=== PATIENT | male | born 1950 | race Hispanic/Latino ===

== ENCOUNTER → 2021-09-27 | Outpatient (CLI) | payer OTHER ==
[~2021-09-27] VITALS: Ht 165.1 cm; Wt 99.8 kg
[~2021-09-27] MED LIST: REGADENOSON 0.4 MG/5 ML PF SYG IVP SCH
== END | disposition home or self-care (01) ==
LOC: SHCH 08:08
PROVIDERS: ATTEND Internal Medicine Cardiovascular Disease
DX: I25.9 Chronic ischemic heart disease, unspecified (principal); R94.31 Abnormal electrocardiogram [ECG] [EKG]
CPT/HCPCS: 78452; 93017; 96374; A9500 ×2; J2785

== ENCOUNTER 2021-11-19 07:29 | Observation (INO) | payer OTHER ==
[2021-11-15 12:29] LABS: BASOPHILS % (AUTO) 0.5 % (0.0-5.0); EOSINOPHILS % (AUTO) 6.1 % (0.0-8.0); HEMATOCRIT 42.7 % (42-54); LYMPHOCYTES % (AUTO) 20.7 % (21.0-51.0); MEAN CORPUSCULAR HEMOGLOBIN 30.4 pg (27.0-33.0); MEAN CORPUSCULAR HGB CONC 32.3 g/dL (32.0-36.0); MEAN CORPUSCULAR VOLUME 94.1 fL (79-99); MONOCYTES % (AUTO) 7.5 % (3.0-13.0); NEUTROPHILS % (AUTO) 64.6 % (40.0-77.0); PLATELET COUNT (AUTO) 283 K/uL (130-400); RED BLOOD CELL COUNT(AUTO) 4.54 MIL/uL (4.50-6.20); WHITE BLOOD COUNT (AUTO) 8.6 K/uL (4.8-10.8)
[2021-11-15 12:39] LABS: INR 1.01 (0.85-1.15)
[2021-11-15 12:40] LABS: CREATININE 1.4 mg/dL (0.5-1.5); PARTIAL THROMBOPLASTIN TIME 30.1 SEC (26.3-35.5); POTASSIUM 4.1 mmol/L (3.5-5.1)
[2021-11-15 12:42] LABS: APPEARANCE,URINE CLEAR (CLEAR); BILIRUBIN,URINE NEGATIVE (NEGATIVE); COLOR,URINE YELLOW (YELLOW); GLUCOSE, URINE (UA) NEGATIVE (NEGATIVE); KETONES,URINE NEGATIVE (NEGATIVE); LEUKOCYTE ESTERASE ,URINE NEGATIVE (NEGATIVE); NITRATE,URINE NEGATIVE (NEGATIVE); OCCULT BLOOD,URINE NEGATIVE (NEGATIVE); PROTEIN,URINE NEGATIVE (NEGATIVE); UROBILINOGEN,URINE 0.2 mg/dL (0.2-1.0)
[~2021-11-19] VITALS: Ht 165.1 cm; Wt 96.6 kg
[~2021-11-19 07:29] MED LIST changes: +0.9% NACL 500ML IV.SOLN 500 ML IV SCH; +0.9%NACL 1000ML 1,000 ML IV SCH; +AEC81 PO; +ALLO100T PO; +ATOR40TA71 PO; +CLOP75TA32 PO; +FURO20TA4 PO; +GLIP2.5T2 PO; +ISOS60TA77 PO; +METF-446 PO; +METO25TA6 PO; -REGADENOSON 0.4 MG/5 ML PF SYG IVP SCH
[2021-11-19 07:48] VITALS: BP 153/80
[2021-11-19] MEDS ORDERED: IOHEXOL 350 MG/ML 100ML INFUS..BTL IV ONE (08:18)
[2021-11-19] MEDS ORDERED: IOHEXOL-350 50ML VIAL IV ONE (08:18)
[2021-11-19] MEDS ORDERED: MIDAZOLAM HCL 1 MG/ML 2ML VIAL ONE (08:18)
[2021-11-19] MEDS ORDERED: LIDOCAINE HCL 1% 20 ML VIAL ONE (08:18)
[2021-11-19] MEDS ORDERED: HEPARIN 10,000 UNIT/10ML (1,000 UNIT/ML) VIAL ONE (08:18)
[2021-11-19] MEDS ORDERED: NITROGLYCERIN 50MG VIAL ONE (08:18)
[2021-11-19] MEDS ORDERED: FENTANYL CITRATE PF 50 MCG/1 ML 2ML VIAL ONE (08:19)
[2021-11-19] MEDS ORDERED: BIVALIRUDIN 250 MG/VIAL IV ONE (08:56)
[2021-11-19] MEDS ORDERED: ASPIRIN 81 MG EC TAB ONE (09:26)
[2021-11-19] MEDS ORDERED: CLOPIDOGREL 300MG TAB ONE (09:26)
[2021-11-19] MEDS ORDERED: EPTIFIBATIDE 2 MG/ML 10 ML VIAL IVP ONE ×2 (10:26→10:40)
[2021-11-19] MEDS ORDERED: EPTIFIBATIDE 75MG/100ML BOTTLE 100 ML IV ONE ×2 (10:26→11:28)
[2021-11-19] MEDS ORDERED: MORPHINE 4 MG SYG ONE (10:41)
[2021-11-19] MEDS ORDERED: 0.9%NACL 1000ML 1,000 ML IV SCH (12:00)
[2021-11-19] MEDS ORDERED: DEXTROSE 50%-WATER 50 ML DISP.SYRIN IV PRN (12:00)
[2021-11-19] MEDS ORDERED: EPTIFIBATIDE 75MG/100ML BOTTLE 100 ML IV SCH (12:00)
[2021-11-19] MEDS ORDERED: GLUCAGON 1MG KIT 1 MG ML IM PRN (12:00)
[2021-11-19] MEDS ORDERED: BIMA12.5OS OU (13:14)
[2021-11-19 15:00] VITALS: BP 127/68
[2021-11-19 16:00] VITALS: BP 130/67
[2021-11-19] MEDS: INSULIN HUMULIN R 100 UNIT/ML 3ML SQ SCH (19:37)
[2021-11-19 19:51] VITALS: BP 128/62
[2021-11-19] MEDS: METOPROLOL TARTRATE 25 MG TAB PO SCH (20:56)
[2021-11-19] MEDS ORDERED: ATORVASTATIN 40 MG TABLET PO SCH (21:00)
[2021-11-19] MEDS ORDERED: Bimatoprost (Lumigan 0.01% Ophth Soln) OU SCH (21:00)
[2021-11-19 23:51] VITALS: BP 120/64
[2021-11-20 04:02] VITALS: BP 122/62
[2021-11-20 04:07] LABS: HEMATOCRIT 39.3 % (42-54); MEAN CORPUSCULAR HEMOGLOBIN 31.1 pg (27.0-33.0); MEAN CORPUSCULAR HGB CONC 32.6 g/dL (32.0-36.0); MEAN CORPUSCULAR VOLUME 95.6 fL (79-99); RED BLOOD CELL COUNT(AUTO) 4.11 MIL/uL (4.50-6.20); RED CELL DISTRIBUTION WIDTH 14.1 % (11.0-15.5); WHITE BLOOD COUNT (AUTO) 9.3 K/uL (4.8-10.8)
[2021-11-20 04:12] LABS: HEMOGLOBIN A1C 7.2 % (4.0-6.0)
[2021-11-20 04:22] LABS: CREATININE 1.2 mg/dL (0.5-1.5); POTASSIUM 4.2 mmol/L (3.5-5.1)
[2021-11-20] MEDS: INSULIN HUMULIN R 100 UNIT/ML 3ML SQ SCH (05:59)
[2021-11-20 08:00] VITALS: BP 126/80
[2021-11-20] MEDS: METOPROLOL TARTRATE 25 MG TAB PO SCH (08:16)
[2021-11-20] MEDS ORDERED: FUROSEMIDE 20 MG TABLET PO SCH (09:00)
[2021-11-20] MEDS ORDERED: ALLOPURINOL 100 MG TABLET PO SCH (09:00)
[2021-11-20] MEDS ORDERED: CLOPIDOGREL 75MG TAB PO SCH (09:00)
[2021-11-20] MEDS ORDERED: ISOSORBIDE MONO 60MG SR TAB PO SCH (09:00)
[2021-11-20] MEDS ORDERED: ASPIRIN 81 MG EC TAB PO SCH (09:00)
== END 2021-11-20 10:15 | disposition home or self-care (01) ==
LOC: DAH 07:29 → 2AH 07:30
PROVIDERS: ADMIT Internal Medicine; ATTEND Internal Medicine
DX: I25.10 Atherosclerotic heart disease of native coronary artery without angina pectoris (principal); I10 Essential (primary) hypertension; I25.2 Old myocardial infarction; I25.810 Atherosclerosis of coronary artery bypass graft(s) without angina pectoris; I25.82 Chronic total occlusion of coronary artery; E11.9 Type 2 diabetes mellitus without complications; E78.5 Hyperlipidemia, unspecified; M10.9 Gout, unspecified; R07.89 Other chest pain; Z95.5 Presence of coronary angioplasty implant and graft; Z79.84 Long term (current) use of oral hypoglycemic drugs; Z79.82 Long term (current) use of aspirin
CPT/HCPCS: 36415 ×2; 71045; 80048 ×2; 81003; 82948 ×3; 83036; 85025; 85027; 85347 ×4; 85610; 85730; 92920 ×2; 93005; 93799; 96365; 96366; A4215; A4216; A4221; A4222; A4223 ×3; A4606; A4663; C1725 ×4; C1757; C1760; C1761 ×2; C1769 ×4; C1887; C1894 ×2; G0378 ×22; J1327 ×5; J1644 ×3; J2250; J2270; J3010; J3490; J7030 ×2; Q9965 ×2; Q9967; 99156; 99157; J0583

== ENCOUNTER 2022-02-15 06:21 | Observation (INO) | payer OTHER ==
[~2022-02-15] VITALS: Ht 165.1 cm; Wt 94.2 kg
[~2022-02-15 06:21] MED LIST changes: -0.9% NACL 500ML IV.SOLN 500 ML IV SCH; -0.9%NACL 1000ML 1,000 ML IV SCH; +BIMA12.5OS OU
[2022-02-15 06:30] LABS: BASOPHILS % (AUTO) 0.8 % (0.0-5.0); EOSINOPHILS % (AUTO) 10.2 % (0.0-8.0); HEMATOCRIT 42.4 % (42-54); LYMPHOCYTES % (AUTO) 21.1 % (21.0-51.0); MEAN CORPUSCULAR HEMOGLOBIN 30.6 pg (27.0-33.0); MEAN CORPUSCULAR HGB CONC 33.3 g/dL (32.0-36.0); MONOCYTES % (AUTO) 9.8 % (3.0-13.0); NEUTROPHILS % (AUTO) 57.6 % (40.0-77.0); PLATELET COUNT (AUTO) 214 K/uL (130-400); RED BLOOD CELL COUNT(AUTO) 4.61 MIL/uL (4.50-6.20); RED CELL DISTRIBUTION WIDTH 14.1 % (11.0-15.5); WHITE BLOOD COUNT (AUTO) 8.5 K/uL (4.8-10.8)
[2022-02-15] MEDS ORDERED: NITROGLYCERIN 1GM OINT 1 INCH/1GM TD ONE (07:00)
[2022-02-15 07:15] LABS: ALBUMIN 3.6 g/dL (3.5-5.0); CREATININE 1.3 mg/dL (0.5-1.5); TOTAL PROTEIN, SERUM 6.4 g/dL (6.0-8.3)
[2022-02-15] MEDS ORDERED: HYDROMORPHONE 1 MG INJ IVP PRN (08:30)
[2022-02-15] MEDS ORDERED: ALBUTEROL 0.083% 2.5 MG/3 ML INH IH PRN (08:30)
[2022-02-15] MEDS ORDERED: ACETAMINOPHEN 325 MG TAB PO PRN (08:30)
[2022-02-15] MEDS ORDERED: LABETALOL 20MG SYG IV PRN (08:30)
[2022-02-15] MEDS ORDERED: HYDRALAZINE 20MG/ML VIAL IV PRN (08:30)
[2022-02-15] MEDS ORDERED: LACTULOSE 20 GM/30 ML UDCUP PO PRN (08:30)
[2022-02-15] MEDS ORDERED: ONDANSETRON 4MG INJ IVP PRN (08:30)
[2022-02-15] MEDS: ASPIRIN 81MG CHEW TAB PO SCH (08:54)
[2022-02-15] MEDS: METOPROLOL TARTRATE 25 MG TAB PO SCH ×2 (08:54→21:05)
[2022-02-15] MEDS: PANTOPRAZOLE 40 MG/VIAL IVP SCH (08:54)
[2022-02-15] MEDS: ENOXAPARIN SODIUM 100 MG/1 ML SQ SCH ×2 (08:55→21:06)
[2022-02-15] MEDS: POLYETHYLENE GLYCOL 3350 17 GM POWD.PACK PO SCH (08:56)
[2022-02-15] MEDS ORDERED: ENOXAPARIN SODIUM 1 MG/KG SQ SCH (09:00)
[2022-02-15] MEDS ORDERED: ISOSORBIDE MONO 30MG SR TAB PO SCH (09:00)
[2022-02-15] MEDS ORDERED: CLOPIDOGREL 75MG TAB PO SCH (10:30)
[2022-02-15 10:45] VITALS: BP 132/78
[2022-02-15] MEDS: INSULIN HUMULIN R 100 UNIT/ML 3ML SQ SCH ×3 (11:30→21:44)
[2022-02-15 16:00] VITALS: BP 151/75
[2022-02-15 19:12] VITALS: BP 121/58
[2022-02-15] MEDS ORDERED: ATORVASTATIN 20 MG TABLET PO SCH (21:00)
[2022-02-15] MEDS: ATORVASTATIN 40 MG TABLET PO SCH (21:05)
[2022-02-15] MEDS: LATANOPROST 2.5 ML DROPS OU SCH (21:07)
[2022-02-16 00:12] VITALS: BP 138/75
[2022-02-16 02:07] LABS: BASOPHILS % (AUTO) 0.6 % (0.0-5.0); EOSINOPHILS % (AUTO) 10.3 % (0.0-8.0); HEMATOCRIT 41.4 % (42-54); LYMPHOCYTES % (AUTO) 16.8 % (21.0-51.0); MEAN CORPUSCULAR HEMOGLOBIN 30.3 pg (27.0-33.0); MEAN CORPUSCULAR HGB CONC 32.6 g/dL (32.0-36.0); MEAN CORPUSCULAR VOLUME 92.8 fL (79-99); MONOCYTES % (AUTO) 9.5 % (3.0-13.0); NEUTROPHILS % (AUTO) 62.4 % (40.0-77.0); PLATELET COUNT (AUTO) 215 K/uL (130-400); RED BLOOD CELL COUNT(AUTO) 4.46 MIL/uL (4.50-6.20); RED CELL DISTRIBUTION WIDTH 14.1 % (11.0-15.5); WHITE BLOOD COUNT (AUTO) 8.1 K/uL (4.8-10.8)
[2022-02-16 02:29] LABS: CREATININE 1.3 mg/dL (0.5-1.5); PHOSPHORUS 3.9 mg/dL (2.5-4.9); POTASSIUM 4.2 mmol/L (3.5-5.1); THYROID STIMULATING HORMONE 1.35 uIU/mL (0.36-3.74)
[2022-02-16 02:43] LABS: B-TYPE NATRIURETIC PEPTIDE 80 pg/mL (0-100)
[2022-02-16 04:00] VITALS: BP 132/69
[2022-02-16] MEDS: INSULIN HUMULIN R 100 UNIT/ML 3ML SQ SCH ×4 (06:31→20:19)
[2022-02-16] MEDS: PANTOPRAZOLE 40 MG/VIAL IVP SCH (08:05)
[2022-02-16] MEDS: POLYETHYLENE GLYCOL 3350 17 GM POWD.PACK PO SCH ×2 (08:06→08:15)
[2022-02-16] MEDS: FUROSEMIDE 20 MG TABLET PO SCH (08:06)
[2022-02-16] MEDS: ENOXAPARIN SODIUM 100 MG/1 ML SQ SCH (08:06)
[2022-02-16] MEDS: ASPIRIN 81MG CHEW TAB PO SCH (08:06)
[2022-02-16] MEDS: METOPROLOL TARTRATE 25 MG TAB PO SCH ×2 (08:07→20:29)
[2022-02-16] MEDS: CLOPIDOGREL 75MG TAB PO SCH (08:07)
[2022-02-16] MEDS: ALLOPURINOL 100 MG TABLET PO SCH (08:07)
[2022-02-16 08:14] VITALS: BP 137/74
[2022-02-16] MEDS ORDERED: ISOSORBIDE MONO 30MG SR TAB PO SCH ×2 (09:00→16:30)
[2022-02-16 11:44] VITALS: BP 119/70
[2022-02-16 16:06] VITALS: BP 119/71
[2022-02-16 19:12] VITALS: BP 122/60
[2022-02-16] MEDS: LATANOPROST 2.5 ML DROPS OU SCH (20:28)
[2022-02-16] MEDS: ATORVASTATIN 40 MG TABLET PO SCH (20:29)
[2022-02-17 00:12] VITALS: BP 125/63
[2022-02-17 03:12] VITALS: BP 129/66
[2022-02-17 04:31] LABS: BASOPHILS % (AUTO) 0.7 % (0.0-5.0); EOSINOPHILS % (AUTO) 8.9 % (0.0-8.0); HEMATOCRIT 41.9 % (42-54); LYMPHOCYTES % (AUTO) 17.2 % (21.0-51.0); MEAN CORPUSCULAR HEMOGLOBIN 30.1 pg (27.0-33.0); MEAN CORPUSCULAR HGB CONC 32.5 g/dL (32.0-36.0); MEAN CORPUSCULAR VOLUME 92.7 fL (79-99); MONOCYTES % (AUTO) 9.8 % (3.0-13.0); NEUTROPHILS % (AUTO) 62.8 % (40.0-77.0); PLATELET COUNT (AUTO) 208 K/uL (130-400); RED BLOOD CELL COUNT(AUTO) 4.52 MIL/uL (4.50-6.20); WHITE BLOOD COUNT (AUTO) 7.2 K/uL (4.8-10.8)
[2022-02-17 04:55] LABS: ALBUMIN 3.3 g/dL (3.5-5.0); CREATININE 1.4 mg/dL (0.5-1.5); POTASSIUM 4.5 mmol/L (3.5-5.1); TOTAL PROTEIN, SERUM 6.6 g/dL (6.0-8.3)
[2022-02-17] MEDS: INSULIN HUMULIN R 100 UNIT/ML 3ML SQ SCH (05:56)
[2022-02-17 07:32] VITALS: BP 140/68
[2022-02-17] MEDS: ASPIRIN 81MG CHEW TAB PO SCH (07:46)
[2022-02-17] MEDS: METOPROLOL TARTRATE 25 MG TAB PO SCH (07:49)
[2022-02-17] MEDS: ALLOPURINOL 100 MG TABLET PO SCH (07:49)
[2022-02-17] MEDS: FUROSEMIDE 20 MG TABLET PO SCH (07:50)
[2022-02-17] MEDS: CLOPIDOGREL 75MG TAB PO SCH (07:50)
[2022-02-17] MEDS: PANTOPRAZOLE 40 MG/VIAL IVP SCH (07:50)
[2022-02-17] MEDS: POLYETHYLENE GLYCOL 3350 17 GM POWD.PACK PO SCH (08:00)
[2022-02-17] MEDS ORDERED: ISOSORBIDE MONO 30MG SR TAB PO SCH (09:00)
[2022-02-17 10:50] VITALS: BP 120/65
[2022-02-17] MEDS ORDERED: NITR0.3T11 SL (11:53)
[2022-02-17] MEDS ORDERED: ISOS30TA92 PO (11:53)
== END 2022-02-17 13:20 | disposition home or self-care (01) ==
LOC: EDH 06:21 → EDHIP 08:23 → 2AH 10:50 → 2DH 17:02
PROVIDERS: ADMIT Internal Medicine; ATTEND Internal Medicine
DX: I21.4 Non-ST elevation (NSTEMI) myocardial infarction (principal); I24.9 Acute ischemic heart disease, unspecified; I25.10 Atherosclerotic heart disease of native coronary artery without angina pectoris; I10 Essential (primary) hypertension; E11.65 Type 2 diabetes mellitus with hyperglycemia; I25.810 Atherosclerosis of coronary artery bypass graft(s) without angina pectoris; I25.2 Old myocardial infarction; M10.9 Gout, unspecified; M47.815 Spondylosis without myelopathy or radiculopathy, thoracolumbar region; E78.00 Pure hypercholesterolemia, unspecified; Z79.899 Other long term (current) drug therapy; Z95.5 Presence of coronary angioplasty implant and graft; Z96.652 Presence of left artificial knee joint; Z79.4 Long term (current) use of insulin; Z79.84 Long term (current) use of oral hypoglycemic drugs; Z79.82 Long term (current) use of aspirin; Z95.1 Presence of aortocoronary bypass graft
CPT/HCPCS: 96374; 96372; 99285; 82550 ×3; 83874 ×3; 84484 ×4; 80053; 85025; 82948 ×2; 36415; 71045; 93306; 93356; 93005; J1815; G0378 ×16; J1650 ×2; C9113; 80048; 83735; 83880; 84100; 84443; 96376

== ENCOUNTER 2022-02-19 01:00 | Inpatient (IN) | payer OTHER ==
[~2022-02-19] VITALS: Ht 165.1 cm; Wt 104.7 kg
[2022-02-19] VITALS (48 sets, daily range): BP systolic 83–143; BP diastolic 49–86
[~2022-02-19 01:00] MED LIST changes: +ISOS30TA92 PO; -ISOS60TA77 PO; +NITR0.3T11 SL
[2022-02-19] MEDS ORDERED: ASPIRIN 81MG CHEW TAB ONE (01:07)
[2022-02-19] MEDS ORDERED: NITROGLYCERIN 1GM OINT 1 INCH/1GM TD ONE (01:07)
[2022-02-19 01:23] LABS: BASOPHILS % (AUTO) 0.6 % (0.0-5.0); EOSINOPHILS % (AUTO) 6.7 % (0.0-8.0); HEMATOCRIT 40.9 % (42-54); LYMPHOCYTES % (AUTO) 18.1 % (21.0-51.0); MEAN CORPUSCULAR HEMOGLOBIN 30.4 pg (27.0-33.0); MEAN CORPUSCULAR HGB CONC 33.3 g/dL (32.0-36.0); MEAN CORPUSCULAR VOLUME 91.5 fL (79-99); MONOCYTES % (AUTO) 10.5 % (3.0-13.0); NEUTROPHILS % (AUTO) 63.7 % (40.0-77.0); PLATELET COUNT (AUTO) 231 K/uL (130-400); RED BLOOD CELL COUNT(AUTO) 4.47 MIL/uL (4.50-6.20); RED CELL DISTRIBUTION WIDTH 14.1 % (11.0-15.5); WHITE BLOOD COUNT (AUTO) 10.3 K/uL (4.8-10.8)
[2022-02-19] MEDS ORDERED: NITROGLYCERIN 50MG/D5W 250ML 1 BOT ONE (01:24)
[2022-02-19] MEDS ORDERED: GLIP2.5T2 PO (01:27)
[2022-02-19] MEDS ORDERED: NITR0.3T11 SL (01:27)
[2022-02-19] MEDS ORDERED: FURO20TA4 PO (01:27)
[2022-02-19] MEDS ORDERED: CLOP75TA32 PO (01:27)
[2022-02-19] MEDS ORDERED: AEC81 PO (01:27)
[2022-02-19] MEDS ORDERED: ALLO100T PO (01:27)
[2022-02-19] MEDS ORDERED: METO25TA6 PO (01:27)
[2022-02-19] MEDS ORDERED: ATOR40TA69 PO (01:27)
[2022-02-19] MEDS ORDERED: METF-446 PO (01:27)
[2022-02-19] MEDS ORDERED: ISOS60TA77 PO (01:27)
[2022-02-19] MEDS ORDERED: ASPIRIN 81MG CHEW TAB PO ONE (01:30)
[2022-02-19 01:47] LABS: INR 1.02 (0.85-1.15); PROTHROMBIN TIME 11.1 SEC (9.6-11.6)
[2022-02-19 01:48] LABS: CREATININE 1.1 mg/dL (0.5-1.5); PARTIAL THROMBOPLASTIN TIME 32.7 SEC (26.3-35.5); POTASSIUM 4.8 mmol/L (3.5-5.1)
[2022-02-19 01:53] LABS: ALBUMIN 3.4 g/dL (3.5-5.0); MAGNESIUM 1.8 mg/dL (1.80-2.40); TOTAL PROTEIN, SERUM 6.5 g/dL (6.0-8.3)
[2022-02-19] MEDS ORDERED: HEPARIN 25,000 UNITS/250ML D5W 250 ML IV ONE (02:17)
[2022-02-19] MEDS ORDERED: HEPARIN 5,000 UNIT VIAL ONE (02:22)
[2022-02-19] MEDS ORDERED: CLOPIDOGREL 300MG TAB ONE ×2 (02:36→11:21)
[2022-02-19] MEDS ORDERED: MORPHINE 2 MG SYG ONE (03:15)
[2022-02-19] MEDS ORDERED: HYDRALAZINE 20MG/ML VIAL IV PRN (03:30)
[2022-02-19] MEDS ORDERED: DOCUSATE SODIUM 100 MG CAP PO PRN (03:30)
[2022-02-19] MEDS ORDERED: ALBUTEROL 0.083% 2.5 MG/3 ML INH IH PRN (03:30)
[2022-02-19] MEDS ORDERED: ONDANSETRON 4MG INJ IVP PRN (03:30)
[2022-02-19] MEDS ORDERED: LABETALOL 20MG SYG IV PRN (03:30)
[2022-02-19] MEDS ORDERED: 0.9%NACL 1000ML 1,000 ML IV SCH (03:30)
[2022-02-19] MEDS ORDERED: LACTULOSE 20 GM/30 ML UDCUP PO PRN (03:30)
[2022-02-19] MEDS: INSULIN HUMULIN R 100 UNIT/ML 3ML SQ SCH ×3 (06:00→18:14)
[2022-02-19] MEDS ORDERED: HEPARIN 25,000 UNITS/250ML D5W 250 ML IV SCH ×3 (06:30→15:00)
[2022-02-19 08:15] LABS: MAGNESIUM 1.9 mg/dL (1.80-2.40); PHOSPHORUS 3.7 mg/dL (2.5-4.9)
[2022-02-19] MEDS: 0.9%NACL 1000ML 1,000 ML IV SCH ×2 (08:51→16:10)
[2022-02-19] MEDS: PANTOPRAZOLE 40 MG/VIAL IVP SCH (08:59)
[2022-02-19] MEDS ORDERED: PANTOPRAZOLE 40 MG/VIAL IVP SCH ×2 (09:00)
[2022-02-19] MEDS ORDERED: IODIXANOL 320 MG/ML 100 ML VIAL ONE (10:42)
[2022-02-19] MEDS ORDERED: HEPARIN 10,000 UNIT/10ML (1,000 UNIT/ML) VIAL ONE (10:42)
[2022-02-19] MEDS ORDERED: NITROGLYCERIN 50MG VIAL ONE (10:42)
[2022-02-19] MEDS ORDERED: MIDAZOLAM HCL 1 MG/ML 2ML VIAL ONE ×3 (10:43→12:45)
[2022-02-19] MEDS ORDERED: LIDOCAINE HCL 400MG/20ML VIAL ONE (10:43)
[2022-02-19] MEDS ORDERED: FENTANYL CITRATE PF 50 MCG/1 ML 2ML VIAL ONE ×2 (10:43→12:23)
[2022-02-19] MEDS ORDERED: IOHEXOL 350 MG/ML 100ML INFUS..BTL IV ONE ×2 (10:50→12:00)
[2022-02-19] MEDS ORDERED: NOREPINEPHRINE BITARTRATE 1 MG/1 ML ML IV ONE (12:59)
[2022-02-19 13:37] LABS: HEMATOCRIT 45.1 % (42-54)
[2022-02-19] MEDS ORDERED: DEXTROSE 50%-WATER 50 ML DISP.SYRIN IV PRN (14:30)
[2022-02-19] MEDS ORDERED: 0.9% NACL 500ML IV.SOLN 500 ML IV SCH (14:30)
[2022-02-19] MEDS ORDERED: GLUCAGON 1MG KIT 1 MG ML IM PRN (14:30)
[2022-02-19 15:25] LABS: ABG BASE EXCESS -7.5 mmol/L (-2.0-3.0); ABG HCO3 17.9 mmol/L (21.0-28.0); ABG OXYGEN SATURATION 91.7 % (95.0-99.0); ABG PCO2 36 mmHg (35-48)
[2022-02-19 15:50] LABS: HEMATOCRIT 41.7 % (42-54); MEAN CORPUSCULAR HEMOGLOBIN 30.9 pg (27.0-33.0); MEAN CORPUSCULAR HGB CONC 33.1 g/dL (32.0-36.0); MEAN CORPUSCULAR VOLUME 93.5 fL (79-99); RED BLOOD CELL COUNT(AUTO) 4.46 MIL/uL (4.50-6.20); RED CELL DISTRIBUTION WIDTH 13.9 % (11.0-15.5); WHITE BLOOD COUNT (AUTO) 16.7 K/uL (4.8-10.8)
[2022-02-19 16:00] LABS: CREATININE 1.2 mg/dL (0.5-1.5); INR 1.02 (0.85-1.15); POTASSIUM 4.8 mmol/L (3.5-5.1); PROTHROMBIN TIME 11.1 SEC (9.6-11.6)
[2022-02-19] MEDS ORDERED: SODIUM BICARB 50MEQ 50ML VIAL IV SCH (16:00)
[2022-02-19 16:04] LABS: ALBUMIN 3.1 g/dL (3.5-5.0); HEMOGLOBIN A1C 7.1 % (4.0-6.0); TOTAL PROTEIN, SERUM 6.5 g/dL (6.0-8.3)
[2022-02-19 16:20] LABS: PARTIAL THROMBOPLASTIN TIME > 139.0 SEC (26.3-35.5)
[2022-02-19] MEDS: MORPHINE 4 MG SYG IVP PRN ×2 (16:53→20:20)
[2022-02-19] MEDS: NITROGLYCERIN 50MG/D5W 250ML 250 BOT IV SCH (16:57)
[2022-02-19] MEDS: ALLOPURINOL 100 MG TABLET PO SCH (17:15)
[2022-02-19] MEDS ORDERED: NITROGLYCERIN 0.4 MG SL TAB SL PRN (17:30)
[2022-02-19] MEDS ORDERED: NON-FORMULARY MEDICATION 1 EACH (Nitroglycerin 0.3 MG) SL PRN (17:30)
[2022-02-19] MEDS ORDERED: CALCIUM GLUC 1GM 1 GM in 0.9%NACL 100ML 100 ML IV SCH (17:30)
[2022-02-19] MEDS ORDERED: CALCIUM GLUC 1GM/10ML VIAL IV ONE (17:30)
[2022-02-19] MEDS ORDERED: POTASSIUM CHLORIDE 20MEQ/100ML 100 ML IV PRN (19:30)
[2022-02-19] MEDS ORDERED: POTASSIUM CHLORIDE 10% ELIXIR 20 MEQ/15 ML UDCUP PO PRN (19:30)
[2022-02-19] MEDS ORDERED: MAGNESIUM 2GM PREMIX 50ML 50 ML IV PRN (19:30)
[2022-02-19] MEDS ORDERED: LIDOCAINE HCL-MPF 1% 2ML VIAL IV PRN (19:30)
[2022-02-19 19:46] LABS: ABG BASE EXCESS -2.2 mmol/L (-2.0-3.0); ABG HCO3 22.4 mmol/L (21.0-28.0); ABG OXYGEN SATURATION 96.5 % (95.0-99.0); ABG PCO2 38 mmHg (35-48)
[2022-02-19] MEDS: ATORVASTATIN 40 MG TABLET PO SCH (19:51)
[2022-02-19] MEDS: METOPROLOL TARTRATE 25 MG TAB PO SCH (19:51)
[2022-02-19] MEDS: ***HM*** (Bimatoprost (Lumigan 0.01% Ophth Soln) 1 DROP) OU SCH (19:56)
[2022-02-19] MEDS ORDERED: BIMATOPROST OU SCH (21:00)
[2022-02-19] MEDS ORDERED: MIDAZOLAM HCL 1 MG/ML 2ML VIAL IVP ONE (22:00)
[2022-02-19 22:51] LABS: MYOGLOBIN 1996 ng/mL (10-92)
[2022-02-19 23:01] LABS: POTASSIUM 4.6 mmol/L (3.5-5.1)
[2022-02-19 23:02] LABS: CREATININE 1.3 mg/dL (0.5-1.5); MAGNESIUM 2.5 mg/dL (1.80-2.40)
[2022-02-19 23:06] LABS: CREATINE KINASE, TOTAL 2383 U/L (21-232)
[2022-02-20] VITALS (76 sets, daily range): BP systolic 81–113; BP diastolic 50–74
[2022-02-20] MEDS: INSULIN HUMULIN R 100 UNIT/ML 3ML SQ SCH ×4 (00:56→16:45)
[2022-02-20] MEDS: 0.9%NACL 1000ML 1,000 ML IV SCH ×3 (01:34→21:24)
[2022-02-20 03:47] LABS: BASOPHILS % (AUTO) 0.1 % (0.0-5.0); EOSINOPHILS % (AUTO) 0.1 % (0.0-8.0); HEMATOCRIT 35.2 % (42-54); LYMPHOCYTES % (AUTO) 4.8 % (21.0-51.0); MEAN CORPUSCULAR HEMOGLOBIN 30.5 pg (27.0-33.0); MEAN CORPUSCULAR HGB CONC 33.2 g/dL (32.0-36.0); MEAN CORPUSCULAR VOLUME 91.9 fL (79-99); MONOCYTES % (AUTO) 8.1 % (3.0-13.0); NEUTROPHILS % (AUTO) 86.5 % (40.0-77.0); PLATELET COUNT (AUTO) 197 K/uL (130-400); RED BLOOD CELL COUNT(AUTO) 3.83 MIL/uL (4.50-6.20); RED CELL DISTRIBUTION WIDTH 14.1 % (11.0-15.5); WHITE BLOOD COUNT (AUTO) 14.3 K/uL (4.8-10.8)
[2022-02-20] MEDS: MORPHINE 4 MG SYG IVP PRN ×3 (04:21→15:54)
[2022-02-20 04:55] LABS: ALBUMIN 2.9 g/dL (3.5-5.0); CREATININE 1.4 mg/dL (0.5-1.5); MAGNESIUM 2.6 mg/dL (1.80-2.40); PHOSPHORUS 4.2 mg/dL (2.5-4.9); POTASSIUM 4.5 mmol/L (3.5-5.1); TOTAL PROTEIN, SERUM 5.9 g/dL (6.0-8.3)
[2022-02-20 05:01] LABS: ABG BASE EXCESS -2.5 mmol/L (-2.0-3.0); ABG HCO3 22.6 mmol/L (21.0-28.0); ABG OXYGEN SATURATION 95.2 % (95.0-99.0); ABG PCO2 40 mmHg (35-48)
[2022-02-20 06:52] LABS: INR 0.97 (0.85-1.15); PROTHROMBIN TIME 10.6 SEC (9.6-11.6)
[2022-02-20 06:53] LABS: PARTIAL THROMBOPLASTIN TIME 73.7 SEC (26.3-35.5)
[2022-02-20] MEDS: PANTOPRAZOLE 40 MG/VIAL IVP SCH (08:57)
[2022-02-20] MEDS: METOPROLOL TARTRATE 25 MG TAB PO SCH ×3 (08:57→20:58)
[2022-02-20] MEDS: ALLOPURINOL 100 MG TABLET PO SCH (08:57)
[2022-02-20 12:22] LABS: HEMATOCRIT 29.8 % (42-54)
[2022-02-20] MEDS: PREDNISONE 20 MG TABLET PO SCH (12:50)
[2022-02-20 17:58] LABS: INR 0.98 (0.85-1.15); PROTHROMBIN TIME 10.7 SEC (9.6-11.6)
[2022-02-20 17:59] LABS: PARTIAL THROMBOPLASTIN TIME 75.4 SEC (26.3-35.5)
[2022-02-20] MEDS: ***HM*** (Bimatoprost (Lumigan 0.01% Ophth Soln) 1 DROP) OU SCH (21:00)
[2022-02-20] MEDS: ATORVASTATIN 40 MG TABLET PO SCH (21:23)
[2022-02-21] VITALS (34 sets, daily range): BP systolic 92–136; BP diastolic 42–78
[2022-02-21 00:34] LABS: HEMATOCRIT 27.8 % (42-54)
[2022-02-21] MEDS: INSULIN HUMULIN R 100 UNIT/ML 3ML SQ SCH ×4 (00:35→18:02)
[2022-02-21] MEDS ORDERED: ACETAMINOPHEN 325 MG TAB ONE (01:36)
[2022-02-21] MEDS ORDERED: PHARMACY COMMUNICATION MISC SCH (02:30)
[2022-02-21] MEDS ORDERED: ACETAMINOPHEN 325 MG TAB PO PRN (02:30)
[2022-02-21] MEDS: MORPHINE 4 MG SYG IVP PRN ×2 (06:26→15:38)
[2022-02-21] MEDS: PANTOPRAZOLE 40 MG/VIAL IVP SCH (08:10)
[2022-02-21] MEDS: METOPROLOL TARTRATE 25 MG TAB PO SCH (08:11)
[2022-02-21] MEDS: PREDNISONE 20 MG TABLET PO SCH (08:11)
[2022-02-21] MEDS: ALLOPURINOL 100 MG TABLET PO SCH (08:11)
[2022-02-21] MEDS: FUROSEMIDE 20MG VIAL IV SCH ×2 (08:11→20:53)
[2022-02-21 08:16] LABS: CREATININE 1.3 mg/dL (0.5-1.5); MAGNESIUM 2.1 mg/dL (1.80-2.40)
[2022-02-21 08:17] LABS: BASOPHILS % (AUTO) 0.2 % (0.0-5.0); EOSINOPHILS % (AUTO) 0.1 % (0.0-8.0); HEMATOCRIT 28.9 % (42-54); LYMPHOCYTES % (AUTO) 5.7 % (21.0-51.0); MEAN CORPUSCULAR HEMOGLOBIN 30.5 pg (27.0-33.0); MEAN CORPUSCULAR HGB CONC 32.5 g/dL (32.0-36.0); MEAN CORPUSCULAR VOLUME 93.8 fL (79-99); MONOCYTES % (AUTO) 12.2 % (3.0-13.0); NEUTROPHILS % (AUTO) 81.1 % (40.0-77.0); PLATELET COUNT (AUTO) 143 K/uL (130-400); RED BLOOD CELL COUNT(AUTO) 3.08 MIL/uL (4.50-6.20); RED CELL DISTRIBUTION WIDTH 14.5 % (11.0-15.5); WHITE BLOOD COUNT (AUTO) 12.3 K/uL (4.8-10.8)
[2022-02-21] MEDS ORDERED: FUROSEMIDE 20MG VIAL IV SCH (08:30)
[2022-02-21 08:44] LABS: B-TYPE NATRIURETIC PEPTIDE 1270 pg/mL (0-100)
[2022-02-21] MEDS ORDERED: CLOPIDOGREL 75MG TAB PO SCH (09:00)
[2022-02-21] MEDS ORDERED: ASPIRIN 81MG CHEW TAB PO SCH (09:00)
[2022-02-21] MEDS: NITROGLYCERIN 50MG/D5W 250ML 250 BOT IV SCH (09:32)
[2022-02-21] MEDS: ATORVASTATIN 40 MG TABLET PO SCH (20:53)
== END 2022-02-21 22:04 | disposition short-term general hospital (02) | DRG 215 ==
LOC: EDH 01:00 → EDHIP 03:07 → 2BH 05:45
PROVIDERS: ADMIT Internal Medicine; ATTEND Internal Medicine
PROC: 027034Z Dilation of Coronary Artery, One Artery with Drug-eluting Intraluminal Device, Percutaneous Approach (ICD-10-PCS; principal; 2022-02-19)
PROC: 02HA3RZ Insertion of Short-term External Heart Assist System into Heart, Percutaneous Approach (ICD-10-PCS; 2022-02-19)
PROC: 02703ZZ Dilation of Coronary Artery, One Artery, Percutaneous Approach (ICD-10-PCS; 2022-02-19)
PROC: 02F03ZZ Fragmentation in Coronary Artery, One Artery, Percutaneous Approach (ICD-10-PCS; 2022-02-19)
PROC: 5A0221D Assistance with Cardiac Output using Impeller Pump, Continuous (ICD-10-PCS; 2022-02-19)
PROC: 4A023N7 Measurement of Cardiac Sampling and Pressure, Left Heart, Percutaneous Approach (ICD-10-PCS; 2022-02-19)
PROC: B2111ZZ Fluoroscopy of Multiple Coronary Arteries using Low Osmolar Contrast (ICD-10-PCS; 2022-02-19)
PROC: B2181ZZ Fluoroscopy of Left Internal Mammary Bypass Graft using Low Osmolar Contrast (ICD-10-PCS; 2022-02-19)
PROC: B2131ZZ Fluoroscopy of Multiple Coronary Artery Bypass Grafts using Low Osmolar Contrast (ICD-10-PCS; 2022-02-19)
DX: I25.810 Atherosclerosis of coronary artery bypass graft(s) without angina pectoris (principal); I21.4 Non-ST elevation (NSTEMI) myocardial infarction; R57.0 Cardiogenic shock; M10.9 Gout, unspecified; E11.65 Type 2 diabetes mellitus with hyperglycemia; E78.5 Hyperlipidemia, unspecified; Z96.652 Presence of left artificial knee joint; Z95.5 Presence of coronary angioplasty implant and graft; Z20.822 Contact with and (suspected) exposure to COVID-19; Z88.0 Allergy status to penicillin; Z79.899 Other long term (current) drug therapy; Z90.49 Acquired absence of other specified parts of digestive tract; I25.2 Old myocardial infarction; Z79.82 Long term (current) use of aspirin; Z79.84 Long term (current) use of oral hypoglycemic drugs; I11.9 Hypertensive heart disease without heart failure; G47.33 Obstructive sleep apnea (adult) (pediatric); Z68.35 Body mass index [BMI] 35.0-35.9, adult; E66.01 Morbid (severe) obesity due to excess calories
CPT/HCPCS: 33990; 36415; 36600; 71045; 76882; 80048; 80053; 80061; 82330; 82435; 82550; 82803; 82947; 82948; 83036; 83605; 83735; 83874; 83880; 84100; 84132; 84295; 84443; 84484; 85014; 85018; 85025; 85027; 85347; 85610; 85730; 86850; 86900; 86901; 87635; 93005; 93308; 93459; 93799; 96372; 96376; 99156; 99157; 99291; A4344; C1769; C1887; C1894; C9113; C9600; C9606; C9607; G0378; J0610; J1644; J1650; J1815; J1940; J2250; J2270; J2405; J3010; J3475; J3490; J7030; Q9967